=== PATIENT | female | born 1975 | race Caucasian/White ===

== ENCOUNTER 2017-09-17 01:43 | Emergency (ER) | payer SELFPAY ==
[2017-09-17 02:29] VITALS: BP 148/65; PULSE 85; TEMP 98.7; BMI 32.2
--- NOTE | 2017-09-17 04:44 | PDOC ---
History of Present Illness - General Chief Complaint: Laceration Stated Complaint: R HAND LAC Time Seen by Provider: 09/17/17 03:25 History Source: Patient - History of Present Illness Initial Comments: 09/17/17 05:59 Patient is a 41 y.o. female with no PMH who presents to our ED today with a laceration to the volar surface of her R hand. Patient states she was holding a wet glass and it slipped and in the process broke and she cut her hand. Patient denies any other associated injury including head trauma or LOC. Patient states she rinsed her hand with plain water in the sink and presented to our ED. Past History - Past Medical History Allergies/Adverse Reactions: Allergies Allergy/AdvReac Type Severity Reaction Status Date / Time Penicillins Allergy Verified 09/17/17 02:21 Home Medications: Ambulatory Orders Sulfamethoxazole/Trimethoprim [Bactrim Ds -] 1 tab PO BID #14 tablet 09/17/17 COPD: No - Immunization History Immunization Up to Date: Yes - Suicide/Smoking/Psychosocial Hx Smoking History: Never smoked Have you smoked in the past 12 months: No Information on smoking cessation initiated: No Hx Alcohol Use: No Drug/Substance Use Hx: No Substance Use Type: None Review of Systems - Review of Systems Constitutional: No: Chills, Fever Respiratory: No: Shortness of Breath Cardiac (ROS): No: Chest Pain ABD/GI: No: Constipated, Diarrhea, Nausea, Vomiting *Physical Exam - Vital Signs Last Vital Signs Temp Pulse Resp BP Pulse Ox 98.7 F 85 20 148/65 99 09/17/17 02:21 09/17/17 02:21 09/17/17 02:21 09/17/17 02:21 09/17/17 02:21 - Physical Exam General Appearance: Yes: Nourished, Obese Extremity: positive: Normal Capillary Refill, Other (R volar medial laceration 8 cm, not actively hemmorhaging ) Neurologic: positive: Fully Oriented, Alert Procedures - Laceration/Wound Repair Left Volar Hand Wound Length: 5.0 to 7.5 cm Wound Explored: clean Wound's Depth, Shape: superficial Irrigated w/ Saline: Yes Betadine Prep: Yes Anesthesia: 1% Lidocaine Wound Debrided: minimal Wound Repaired With: Sutures Suture Size/Type: 4:0 Number of Sutures: 9 Medical Decision Making - Medical Decision Making 09/17/17 06:09 41 y.o. female who presents to the ED with laceration to R medial volar surface of her hand. Laceration repaired using 9 simple interrupted sutures with 4.0 nylon suture. Patient tolerated procedure well and instructed to return to ED in 7 days for suture removal. *DC/Admit/Observation/Transfer Diagnosis at time of Disposition: Laceration - Discharge Dispostion Disposition: HOME Condition at time of disposition: Good Admit: No - Prescriptions Prescriptions: Sulfamethoxazole/Trimethoprim [Bactrim Ds -] 1 tab PO BID #14 tablet - Referrals - Patient Instructions Printed Discharge Instructions: DI for Laceration Repair, DI for Suture Removal Additional Instructions: Please return to the Emergency Department in 7 days for suture removal. A prescription has been called to your pharmacy, please take the entire prescribed course. Return to the Emergency Department for any redness, swelling , foul smelling discharge, severe pain or any new/worsening/concerning symptoms. - Post Discharge Activity Forms/Work/School Notes: Back to Work
== END 2017-09-17 05:48 | disposition home or self-care (01) ==
LOC: JER 01:43
PROC: 0HQFXZZ Repair Right Hand Skin, External Approach (ICD-10-PCS; principal; 2017-09-17)
DX: S61.411A Laceration without foreign body of right hand, initial encounter (principal); W25.XXXA Contact with sharp glass, initial encounter; Y93.89 Activity, other specified; Y92.89 Other specified places as the place of occurrence of the external cause; Y99.8 Other external cause status
CPT/HCPCS: 73130-TC-RT-FY; 99283-25

== ENCOUNTER 2017-09-26 09:51 | Emergency (ER) | payer SELFPAY ==
[2017-09-26 10:30] VITALS: BP 153/92; PULSE 68; TEMP 98.1; BMI 36.1
--- NOTE | 2017-09-26 11:17 | PDOC ---
Suture Removal/Wound Check HPI - History of Present Illness Chief Complaint: Suture/Staple Removal(Here) Stated Complaint: SUTURE REMOVAL Time Seen by Provider: 09/26/17 10:52 History Source: Yes: Patient Exam Limitations: Yes: No Limitations Treated at: [facility] Date of Last ED visit: 09/17/17 - Previous ED Treatment Type of procedure performed on last visit: Yes: Laceration Repair Past History - Past Medical History Allergies/Adverse Reactions: Allergies Allergy/AdvReac Type Severity Reaction Status Date / Time Penicillins Allergy Verified 09/26/17 10:26 Home Medications: Ambulatory Orders Sulfamethoxazole/Trimethoprim [Bactrim Ds -] 1 tab PO BID #14 tablet 09/17/17 COPD: No - Immunization History Immunization Up to Date: Yes - Suicide/Smoking/Psychosocial Hx Smoking History: Never smoked Have you smoked in the past 12 months: No Information on smoking cessation initiated: No Hx Alcohol Use: No Drug/Substance Use Hx: No Substance Use Type: None Suture Removal/Wound Check PE - Physical Exam Laceration/Wound Check Symptoms: reports: None Comments: 09/26/17 11:18 right palm with laceration well healed and dry 9 simple interrupted sutures Medical Decision Making - Medical Decision Making 09/26/17 11:18 sutures removed tolerated well will place bandaid now *DC/Admit/Observation/Transfer Diagnosis at time of Disposition: Visit for suture removal - Discharge Dispostion Disposition: HOME Condition at time of disposition: Good - Referrals Referrals: Miky Georges MD [Staff Physician] - - Patient Instructions Printed Discharge Instructions: DI for Suture Removal Additional Instructions: keep clean and dry do not soak in water cover with bandaid when outside of the house follow with if any worsening symptoms or pain - Post Discharge Activity Forms/Work/School Notes: Back to Work
== END 2017-09-26 11:27 | disposition home or self-care (01) ==
LOC: JERFT 09:51
DX: Z48.02 Encounter for removal of sutures (principal)
CPT/HCPCS: 99281-25